=== PATIENT | female | born 1975 | race Two or more races ===

== ENCOUNTER 2025-05-14 13:42 | Emergency (ER) | payer MEDICAID, SELFPAY ==
[2025-05-14 13:46] VITALS: BP 142/89; PULSE 71; RESP 15; TEMP 36.8; O2SAT 96; BMI 36.6
[2025-05-14 13:51] VITALS: PULSE 68; RESP 16; O2SAT 97
--- NOTE | 2025-05-14 14:54 | EDNOTE_ITS ---
<Statement entered by Delaney Vazquez MD - 05/15/25 09:35> As co-signing physician, I was present and available for consult prn. I concur with the plan and care as documented by the midlevel provider. ED Anxiety RME/HPI General Chief Complaint: Anxiety Stated Complaint: MENTAL EVAL Time Seen by Provider: 05/14/25 14:49 Arrival date/time: 05/14/25 13:42 RME / HPI RME / HPI narrative: 49-year-old female patient with significant history of anxiety, came in for evaluation regarding anxiety-like symptoms. Onset of symptoms earlier today. Severity of symptoms moderate. Denies any homicidal or suicidal ideation. Patient is ambulatory. Related Data Home Medications ?Medication ?Instructions ?Recorded ?Confirmed aripiprazole 10 mg tablet (Abilify) 10 mg PO QDAY #0 t abs 01/15/17 clonazepam 0.5 mg tablet (Klonopin) 0.5 mg PO BID #0 t abs 01/15/17 fluoxetine 40 mg capsule (Prozac) 40 mg PO QAM #0 caps 01/15/17 Allergies Allergy/AdvReac Type Severity Reaction Status Date / Time NKA* Allergy Uncoded 05/14/25 13:58 Review of Systems Review of Systems Narrative Review of Systems: Review of system reviewed and within normal limits except mentioned in HPI ED Exam Narrative Physical exam: VITAL SIGNS: Reviewed. GENERAL APPEARANCE: Alert and interactive, follows commands, no acute distress, HEAD AND FACE: Non-traumatic. ENT: PERRL, pink conjunctivitis, eyelid no trauma, Mucous membrane moist. NECK: Supple, nontender, no nuchal rigidity. CHEST: No tenderness, no crepitus, no paradoxical movement, no retractions. LUNGS: Clear, well ventilated, symmetric, no rales, no wheezing, no ronchi, no stridor, good breath sounds bilaterally. HEART: Regular rate, regular rhythm, no murmur, no gallops. ABDOMEN: Soft, positive bowel sounds, nondistended, no guarding, nontender, no rebound, no masses, RECTAL: Deferred. GENITAL: Deferred. NEUROLOGICAL: Gross motor function intact sensory function intact, Appropriate for age. MUSCULOSKELETAL: low back nontender, full range of motion. EXTREMITIES: Nontender, full range of motion. SKIN: Color pink, dry, no rash, no lacerations, no abrasions, no contusions. LYMPHATICS: Deferred. Course Quality Measures none Vital Signs Vital signs: Vital Signs Temperature 98.3 F 05/14/25 13:46 Pulse Rate 71 05/14/25 13:46 Respiratory Rate 15 05/14/25 13:46 Blood Pressure 142/89 H 05/14/25 13:46 Pulse Oximetry (%) 96 05/14/25 13:46 Anxiety MDM Narrative MDM Narrative: 49-year-old female patient with significant history of anxiety, came in for evaluation regarding anxiety-like symptoms. Onset of symptoms earlier today. Severity of symptoms moderate. Denies any homicidal or suicidal ideation. Patient is ambulatory. Patient told me that his anxiety is completely gone after patient realized that he had a as needed anxiety medication that patient took while in the emergency room and waiting to be seen. Wanted to go home Patient data External records reviewed:: None Clinical information provided by:: patient Social determinants that could affect healthcare access:: none Patient has the following chronic illnesses:: History of anxiety How is presenting disease/condition affected by chronic disease/condition?: exacerbated by Evaluation data The following diagnostics were reviewed and interpreted by me:: other (specify) (None) Lab and/or radiology exams considered but not ordered:: None Interpretation Summary: None Medications / Prescriptions Medications or Prescriptions considered but not ordered:: Plan Medication administrations:: None Consultations Consultation(s) initiated? (list below): No Diagnosis Differential diagnosis anxiety: hyperventilation, panic disorder and acute anxiety Most likely diagnosis given after review of the tests above:: anxiety Admission Indicated Admission indicated?: not indicated Admission Request Was there a request for admission?: No Disposition Plan Disposition Plan: Discharge Discharge Attestation Discharge Attestation: The patient and all family members were given an opportunity to ask questions and understood the discharge instructions. Discharge instructions specifically effects, indications for sooner follow up or return to the emergency department, and the expected course of current diagnosis. Patient condition: Stable Discharge Plan Plan Patient Disposition: HOME (Self Care) Discharge Disposition comment: stable Prescriptions/Referrals Prescriptions/Med Rec: No Action aripiprazole [Abilify] 10 MG tablet 10 mg PO QDAY Qty: 0 fluoxetine [Prozac] 40 MG capsule 40 mg PO QAM Qty: 0 clonazepam [Klonopin] 0.5 MG tablet 0.5 mg PO BID Qty: 0 Problem List Clinical Impression: Anxiety disorder Patient/Caregiver Discharge Instructions Discharge Activity: activity as tolerated Education Materials: ED Anxiety Reaction Additional Instructions: Thank you for the opportunity for serving you today. You are stable for discharged . You are advised to: Follow-up with your PCP in 1 to 2 days Return to ED for worsening of symptoms Increase oral fluids Continue taking your anxiety medications Print Language: Slovak Stand Alone Forms: [employer] Award Info., Patient Portal Info Letter JORDAN/LUCIUS Supervising Physician JORDAN/LUCIUS Supervising Physician: MD George
== END 2025-05-14 15:05 | disposition home or self-care (01) ==
LOC: SERX 15:16
PROVIDERS: Emergency Provider Nurse Practitioner Family
DX: F41.9 Anxiety disorder, unspecified (principal)
CPT/HCPCS: 99282